=== PATIENT | male | born 1965 | race Caucasian/White ===

== ENCOUNTER 2019-05-15 14:40 | Emergency (ER) | payer MEDICARE, MEDICAID, SELFPAY ==
[2019-05-15 14:41] VITALS: BP 131/93; PULSE 93; RESP 20; TEMP 36.8; O2SAT 98
--- NOTE | 2019-05-15 14:42 | ED_ITS ---
Entered by Rosaura Segovia, acting as scribe for Williams Rueda DO HPI - Chest Pain General: Chief Complaint: Abdominal Pain Stated Complaint: ABD PAIN; CHEST PAIN; SOB Time Seen by Provider: 05/15/19 14:44 History of Present Illness: HPI narrative: 54 yo male presents with shortness of breath, abd pain and chest pain. Pt states that he has had abdomen pain for 1 year. Pt states that he has had diarrhea. Pt states that he had a surgery on his groin, and he has pain in his groin now. Patient presents in varying complaints his initial complaint was chest pain I went to see me he is complaining of right lower quadrant abdominal pain radiati ng into his groin after we worked him up he stated he also had difficulty with urination pain and burning he might have been exposed to an STD and was having frequency as well. MD complaint: chest pain Associated symptoms: Reports dyspnea; Deny abdominal pain, fever(s), palpitations or syncope Review of Systems Const: Reports: chills; Denies: fever, body aches, fatigue, malaise or night sweats Eyes: Denies: change in vision or blurry vision ENMT: Denies: throat pain, oral sores/lesions, dental pain, nasal discharge or nasal congestion Card: Reports: chest pain; Denies: palpitations, irregular heart rhythm, edema, syncope, shortness of breath on exertion, shortness of breath when lying down or leg pain with exertion Resp: Reports: shortness of breath GI: Denies: abdominal pain : Reports: painful urination (on follow up exam), urinary frequency (on follow up exam) and other (groin pain); Denies: flank pain, difficulty urinating, urinary urgency, urinary incontinence or blood in urine Musc: Denies: neck pain, back pain, extremity pain, extremity swelling, joint pain or joint swelling Skin/Breast: Denies: rash, itching or redness Neuro: Denies: headache, numbness in extremities, weakness in extremities, changes in sensation, lack of coordination, difficulty walking, frequent falls, dizziness, vertigo or confusion Psych: Denies: anxiety, depression, loss of interest, visual hallucinations, auditory hallucinations, suicidal ideation or homicidal ideation Endo: Denies: excessive urination, excessive thirst, tired all the time or cold intolerance Ricky/Lymph: Denies: easy bruising, easy bleeding, petechiae, enlarged lymph nodes or tender lymph nodes PFSH ED PFSH: Statuses (acute, chronic, etc) shown below reflect problem list status as previously entered and may not be historically accurate Medical History Normal colonoscopy (Acute) Surgical History Hx of inguinal hernia surgery (Acute) Social History Smoking and tobacco status: never smoked Physical Exam Const: COMMON NORMALS: average body habitus, oriented x3 and alert GENERAL APPEARANCE: cooperative, comfortable, well kempt and well developed NUTRITIONAL APPEARANCE: obese ORIENTATION/CONSCIOUSNESS: Yes awake, Yes oriented to person and Yes oriented to place HENMT: COMMON NORMALS: normocephalic, head/scalp atraumatic, EAC's normal, TM's normal bilaterally, external nose normal, moist oral mucous membranes and oropharynx normal HEAD & SCALP: normocephalic and atraumatic NOSE: external nose normal EXTERNAL AUDITORY CANAL: EAC's normal TYMPANIC MEMBRANE: TM's normal bilaterally MOUTH: oral and palatal mucosa normal, lip normal and tongue normal THROAT: posterior oropharynx normal and tonsils normal Eye: COMMON NORMALS: PERRL, EOMs intact bilaterally, conjunctivae normal and no scleral icterus CONJUNCTIVA: Yes conjunctivae normal PUPIL: Yes PERRL Neck/C-Spine: COMMON NORMALS: full ROM, no lymphadenopathy, supple, no meningeal signs and thyroid normal THYROID: thyroid normal and asymmetrical Lymph: LYMPHATIC: no lymphadenopathy noted Resp: COMMON NORMALS: normal respiratory effort, no retractions, no use of accessory muscles and clear to auscultation bilaterally AUSCULTATION: clear to auscultation bilaterally Cardio: COMMON NORMALS: regular rate and regular rhythm RATE: regular rate RHYTHM: regular rhythm HEART SOUNDS: no murmurs GI: COMMON NORMALS: normal to inspection, nondistended, normoactive bowel franky nds and soft to palpation PALPATION: Yes soft and Yes tender : COMMON NORMALS: Yes no CVA tenderness, Yes external exam normal, Yes testes normal, Yes scrotum normal, Yes no scrotal swelling and Yes no hernias present BLADDER/KIDNEY EXAM: Yes no CVA tenderness MALE GROIN/PERINEUM EXAM: No lesions PENIS: normal penis, circumcised, no phimosis, no swelling and No lesions MEATUS: meatus normal and no meatla discharge SCROTUM: Yes testes descended bilaterally, No inguinal hernia, No tenderness, No erythematous, No scrotal swelling and No scrotal mass Back/Pelvis: COMMON NORMALS: no CVA tenderness LUMBAR SPINE/LOWER BACK: Yes normal to inspection Extremity: COMMON NORMALS: no clubbing, cyanosis or edema, no calf tenderness and no pedal edema Neuro: COMMON NORMALS: oriented x3 SENSORIUM/ORIENTATION: Yes alert, Yes oriented to person and Yes oriented to place MENINGEAL SIGNS: Yes no meningeal signs Psych: APPEARANCE: Yes well kempt Skin: COMMON NORMALS: no rashes or lesions noted and skin turgor normal GENERAL SKIN EXAM: no rashes or lesions noted and turgor normal Course Consultations: Consultation #1: spoke with Dr. Jc about pt. Time: 16:17 Vital Signs: Vital signs: Vital Signs Temperature 98.3 F 05/15/19 14:41 Pulse Rate 82 05/15/19 18:33 Respiratory Rate 16 05/15/19 18:33 Blood Pressure 137/85 05/15/19 18:33 Pulse Oximetry 96 05/15/19 18:33 MDM - Chest Pain Lab Data: Labs: Lab Results 05/15/19 05/15/19 05/15/19 Range/Units 14:58 14:58 17:07 WBC 9.6 (4.0-10.0) 10^3/ uL RBC 4.61 (4.1-5.3) 10^6/u L Hgb 14.5 (11.7-16.6) g/dL Hct 42.1 (42.0-52.0) % MCV 91.3 (80-94) fL MCH 31.5 (28.0-34.0) pg MCHC 34.4 (30.0-36.0) g/dL RDW 12.1 (12.1-15.1) % Plt Count 280 (130-400) 10^3/c mm MPV 10.1 (7.4-10.4) fL Neut % (Auto) 70.9 % Lymph % (Auto) 20.1 % Perry % (Auto) 7.5 % Eos % (Auto) 0.9 % Baso % (Auto) 0.4 % Neut # (Auto) 6.8 (1.8-7.7) 10^3/u L Lymph # (Auto) 1.9 (0.8-4.8) 10^3/u L Perry # (Auto) 0.7 (0.2-0.9) 10^3/u L Eos # (Auto) 0.1 (0.0-0.8) 10^3/u L Baso # (Auto) 0.0 (0.0-0.1) 10^3/u L Nucleated RBC % (a uto) 0 % Nucleated RBCs # 0.0 /100WBC Sodium 139 (136-145) mmol/L Potassium 3.9 (3.5-5.1) mmol/L Chloride 103 (98-107) mmol/L Carbon Dioxide 23 (22-29) mmol/L Anion Gap 16.9 (5-19) BUN 12 (6-20) mg/dL Creatinine 0.7 (0.7-1.2) mg/dL GFR Calculation 116.7 (90-130) mL/min Glucose 116 H (74-109) mg/dL Calcium 9.5 (8.5-10.5) mg/dL Total Bilirubin 0.4 (0.15-1.2) mg/dL AST 14 (0-40) U/L ALT 20 (0-41) U/L Alkaline Phosphata se 137 H (40-130) IU/L Total Protein 6.8 (6.6-8.7) g/dL Albumin 4.8 (3.5-5.2) g/dL Globulin 2.0 (1.3-4.6) g/dL Urine Color Straw (Yellow) Urine Appearance Clear (CLEAR) Urine pH 7 (5-7) Ur Specific Gravit y 1.005 (1.005-1.030) Urine Protein Neg (Negative) Urine Glucose (UA) Norm (Normal) Urine Ketones Negative (Negative) Urine Occult Blood 2+ H (Negative) Urine Nitrate Negative (Negative) Urine Bilirubin Neg (NEGATIVE) Urine Urobilinogen Norm (Negative) mg/dL Ur Leukocyte Modesta ase Negative (Negative) Urine RBC 5-10 H (0-2) /hpf Urine WBC 0-4 H (0-5) /hpf Ur Squamous Epith Cells 0-4 H (0-5) Urine Bacteria Trace (NONE) Urine Mucus Trace Imaging Data^: ct abd: Radiologist's impression: Patient: Milton Griffin Unit #: [id number] : 1965 09 Age/Sex: 54 / M ADM Date: 05/15/19 Loc: ER Room/Bed: Attending Dr: Ordering Provider/Ordering MD: Williams Rueda DO Date of Service: 05/15/19 Procedure(s): CT abdomen pelvis w con* [id number] Accession Number(s): [id number] Report Number: [id number] PROCEDURE INFORMATION: Exam: CT Abdomen And Pelvis With Contrast Exam date and time: 05/15/2019 3:11 PM Age: 54 years old Clinical indication: Abdominal pain; Generalized; Prior surgery; Surgery date: 6+ months; Surgery type: Scrotum; Patient HX: Abd pain x1 yr, increased pain x1 wk, PT denies HX of CA, PT denies HX of smoking. TECHNIQUE: Imaging protocol: Computed tomography of the abdomen and pelvis with intravenous contrast. Total DLP: 572.65 mGy-cm Radiation optimization: All CT scans at this facility use at least one of these dose optimization techniques: automated exposure control; mA and/or kV adjustment per patient size (includes targeted exams where dose is matched to clinical indication); or iterative reconstruction. Contrast material: OMNIPAQUE 300; Contrast volume: 95 ml; Contrast route: IV; COMPARISON: CT Chest/Abdomen/Pelvis w IV* 04/19/2017 1:15 PM FINDINGS: Lungs: Streaky densities at the lung bases are most consistent with scarring and/or atelectasis. Liver: Normal. No mass. Gallbladder and bile ducts: Normal. No calcified stones. No ductal dilation. Pancreas: Normal. No ductal dilation. Spleen: Normal. No splenomegaly. Adrenals: Normal. No mass. Kidneys and ureters: Normal. No hydronephrosis. Stomach and bowel: Unremarkable. No obstruction. No mucosal thickening. Appendix: A normal appendix is identified. Intraperitoneal space: Unremarkable. No free air. No significant fluid collection. Vasculature: Unremarkable. No abdominal aortic aneurysm. Lymph nodes: Unremarkable. No enlarged lymph nodes. Bladder: Unremarkable as visualized. Reproductive: Unremarkable as visualized. Bones/joints: There are degenerative changes in the visualized spine. Degenerative changes are present across the sacroiliac joints. Soft tissues: Small fat containing umbilical hernia. There is minimal inflammatory stranding in the herniated fat. CT/CT abdomen pelvis w con* [id number] IMPRESSION: Small fat containing umbilical hernia. There is minimal inflammatory stranding in the herniated fat. Radiation Dose CTDIVOL = (mGy): DLP = 572.65 (mGy-cm) Dictated By: Dayanna Carmona MD Signed By: Dayanna Carmona MD Signed Date/Time: 05/15/191554 DD/ 52 Discharge Plan Discharge Patient Disposition: Home, Self-Care Clinical Impression: Gastroenteritis, Hernia, umbilical, Exposure to sexually transmitted disease (STD) Condition: Stable Prescriptions: New hydrocodone-acetaminophen 5-325 mg tablet 1 tab PO Q6H PRN (Reason: pain) Qty: 20 RF: 0 Zofran 4 mg tablet 4 mg PO Q6H PRN (Reason: nausea and vomiting) Qty: 14 RF: 0 Discharge Orders: Discharge Order (Routine); Ordered 05/15/19 Ordered By: Williams Rueda Referrals: Ezio Jc MD [Physician] - (umbilical hernia) Discharge Diet: Clear Liquid Discharge Activity: Increase activity as tolerated Activity Restrictions/Additional Instructions: Case management will call to get an appointment with Dr. Jc Discharge Date/Time: 05/15/19 18:33 Coding Level of Care Code ED Burr Sander for Chg Fwd Exam Problem Focused The documentation recorded by the Luca mccabe Kialy, accurately reflects the service I personally performed and the decisions made by Mohit olsen Curtis L, DO May 15, 2019 14:40
--- NOTE | 2019-05-15 14:51 | CTR_ITS ---
PROCEDURE INFORMATION: Exam: CT Abdomen And Pelvis With Contrast Exam date and time: 05/15/2019 3:11 PM Age: 54 years old Clinical indication: Abdominal pain; Generalized; Prior surgery; Surgery date: 6+ months; Surgery type: Scrotum; Patient HX: Abd pain x1 yr, increased pain x1 wk, PT denies HX of CA, PT denies HX of smoking. TECHNIQUE: Imaging protocol: Computed tomography of the abdomen and pelvis with intravenous contrast. Total DLP: 572.65 mGy-cm Radiation optimization: All CT scans at this facility use at least one of these dose optimization techniques: automated exposure control; mA and/or kV adjustment per patient size (includes targeted exams where dose is matched to clinical indication); or iterative reconstruction. Contrast material: OMNIPAQUE 300; Contrast volume: 95 ml; Contrast route: IV; COMPARISON: CT Chest/Abdomen/Pelvis w IV* 04/19/2017 1:15 PM FINDINGS: Lungs: Streaky densities at the lung bases are most consistent with scarring and/or atelectasis. Liver: Normal. No mass. Gallbladder and bile ducts: Normal. No calcified stones. No ductal dilation. Pancreas: Normal. No ductal dilation. Spleen: Normal. No splenomegaly. Adrenals: Normal. No mass. Kidneys and ureters: Normal. No hydronephrosis. Stomach and bowel: Unremarkable. No obstruction. No mucosal thickening. Appendix: A normal appendix is identified. Intraperitoneal space: Unremarkable. No free air. No significant fluid collection. Vasculature: Unremarkable. No abdominal aortic aneurysm. Lymph nodes: Unremarkable. No enlarged lymph nodes. Bladder: Unremarkable as visualized. Reproductive: Unremarkable as visualized. Bones/joints: There are degenerative changes in the visualized spine. Degenerative changes are present across the sacroiliac joints. Soft tissues: Small fat containing umbilical hernia. There is minimal inflammatory stranding in the herniated fat. CT/CT abdomen pelvis w con* [id number] IMPRESSION: Small fat containing umbilical hernia. There is minimal inflammatory stranding in the herniated fat. Radiation Dose CTDIVOL = (mGy): DLP = 572.65 (mGy-cm)
[2019-05-15] MEDS: morphine 4 mg/mL SDV 1 mL IVP ×2 (14:58→16:22)
[2019-05-15] MEDS: sodium chloride 0.9% 1,000 ML 999 ML IV (14:58)
[2019-05-15] MEDS: ondansetron 2 mg/ML SDV 2 mL 4 MG IVP (14:58)
[2019-05-15 15:08] LABS: Basophils % 0.4 %; Eosinophils # 0.1 10^3/uL (0.0-0.8); Eosinophils % 0.9 %; Hematocrit 42.1 % (42.0-52.0); Hemoglobin 14.5 g/dL (11.7-16.6); Lymphocytes # 1.9 10^3/uL (0.8-4.8); Lymphocytes % 20.1 %; Mean Corpuscular HGB Conc 34.4 g/dL (30.0-36.0); Mean Corpuscular Hemoglobin 31.5 pg (28.0-34.0); Mean Corpuscular Volume 91.3 fL (80-94); Mean Platelet Volume 10.1 fL (7.4-10.4); Monocytes # 0.7 10^3/uL (0.2-0.9); Monocytes % 7.5 %; Neutrophils # 6.8 10^3/uL (1.8-7.7); Neutrophils % 70.9 %; Nucleated Red Blood Cells % 0 %; Platelet Count 280 10^3/cmm (130-400); Red Blood Count 4.61 10^6/uL (4.1-5.3); Red Cell Distribution Width 12.1 % (12.1-15.1); White Blood Count 9.6 10^3/uL (4.0-10.0)
[2019-05-15] MEDS: iohexol 300 mg/mL 100 mL Btl IV (15:21)
[2019-05-15 15:25] LABS: Alanine Aminotransferase 20 U/L (0-41); Albumin Level 4.8 g/dL (3.5-5.2); Alkaline Phosphatase 137 IU/L (40-130); Anion Gap 16.9 (5-19); Aspartate Amino Transferase 14 U/L (0-40); Blood Urea Nitrogen 12 mg/dL (6-20); Calcium 9.5 mg/dL (8.5-10.5); Carbon Dioxide 23 mmol/L (22-29); Chloride 103 mmol/L (98-107); Glomerular Filtration Rate 116.7 mL/min (90-130); Glucose 116 mg/dL (74-109); Potassium 3.9 mmol/L (3.5-5.1); Sodium 139 mmol/L (136-145); Total Bilirubin 0.4 mg/dL (0.15-1.2); Total Protein 6.8 g/dL (6.6-8.7)
[2019-05-15] MEDS: azithromycin 250 mg Tablet 1000 MG PO (16:59)
[2019-05-15] MEDS: cefTRIAXone 1,000 mg SDV 500 MG IM (17:00)
[2019-05-15 17:34] LABS: Urine Appearance Clear (CLEAR); Urine Color Straw (Yellow)
[2019-05-15 17:35] LABS: Add Urine Microscopic? YES; Bilirubin Urine Neg (NEGATIVE); Blood Urine 2+ (Negative); Glucose Urine UA Norm (Normal); Ketones Urine Negative (Negative); Leukocyte Esterase Urine Negative (Negative); Nitrate Urine Negative (Negative); Protein Urine Neg (Negative); Specific Gravity, Urine 1.005 (1.005-1.030); Urobilinogen Urine Norm (Negative); pH Urine 7 (5-7)
[2019-05-15 17:42] LABS: Add Urine Culture? No; Bacteria Urine TRACE; Mucus Urine TRACE; Squamous Epithelial Cell Urine 0-4 (0-5); WBC Urine 0-4 /hpf (0-5)
[2019-05-15 18:33] VITALS: BP 137/85; PULSE 82; RESP 16; O2SAT 96
--- NOTE | 2019-05-17 15:56 | DCPLANNER ---
broiler manager had message to schedule a follow up appointment for patient with Dr. Jc. broiler manager called the office of Dr. Jc, spoke with Leigha. A follow up appointment is scheduled for Saturday, June 01, 2019 at 10:[address] Jc. broiler manager called patient and informed patient of the scheduled appointment.
--- NOTE | 2019-06-21 16:05 | DCPLANNER ---
Patient did attend the appointment scheduled for 06.01.[address] Jc.
== END 2019-05-15 18:33 | disposition home or self-care (01) ==
PROVIDERS: Emergency Provider Family Medicine; Family Provider Nurse Practitioner
DX: K52.9 Noninfective gastroenteritis and colitis, unspecified (principal); K42.9 Umbilical hernia without obstruction or gangrene; Z20.2 Contact with and (suspected) exposure to infections with a predominantly sexual mode of transmission
CPT/HCPCS: 36415; 74177; 80053; 81001; 85025; 87491; 87591; 87661; 96360; 96372; 96374; 99281; J0696; J2270; J2405; J7030; Q0144; Q9967

== ENCOUNTER → 2019-07-05 09:04 | Outpatient (BNVA) | payer MEDICARE, MEDICAID, SELFPAY | PROVIDERS: Family Provider Nurse Practitioner; Visit Provider Urology | DX: I86.1 Scrotal varices (principal); N50.89 Other specified disorders of the male genital organs; N50.82 Scrotal pain | CPT/HCPCS: 81001 ==

== ENCOUNTER 2019-07-07 11:40 | Outpatient (CLI) | payer MEDICARE, MEDICAID, SELFPAY ==
--- NOTE | 2019-07-07 12:45 | US_ITS ---
WS: [id number] SCROTAL ULTRASOUND REASON FOR EXAM: scrotal pain COMPARISON: None available. TECHNIQUE: Grayscale and duplex color Doppler ultrasound examination of the scrotum. FINDINGS: RIGHT: Right testes measures 4.3 cm x 2.8 cm x 2.3 cm. Fluid density is seen adjacent to the scrotum measure d 4.5 x 2.3 cm and is consistent with a hydrocele. Right epididymis measures 1.2 cm no evidence of epididymitis. LEFT: Left testes measures 4.8 cm x 2.4 cm x 2.4 cm. Normal blood flow to the testicle no evidence to sugge st torsion. Left epididymis measures 1.2 cm US/US scrotum [id number] IMPRESSION: Normal-appearing right and left testicles A large hydrocele in the right scrotal sac.
== END 2019-07-07 11:41 | disposition home or self-care (01) ==
LOC: US 11:42
PROVIDERS: Family Provider Nurse Practitioner; Visit Provider Urology
DX: N50.82 Scrotal pain (principal); N50.89 Other specified disorders of the male genital organs; N43.3 Hydrocele, unspecified
CPT/HCPCS: 76870